=== PATIENT | male | born 1990 | race African-American/Black ===

== ENCOUNTER 2018-02-10 07:13 | Emergency (ER) | payer OTHER ==
[2018-02-10] MEDS: KETOROLAC 60 MG/2 ML VIAL (J1885) IM (07:38)
== END 2018-02-10 10:15 | disposition home or self-care (01) ==
LOC: M ED 07:13
DX: R07.9 Chest pain, unspecified (principal); F41.9 Anxiety disorder, unspecified
CPT/HCPCS: J1885

== ENCOUNTER 2018-05-02 10:36 | Emergency (ER) | payer OTHER ==
[2018-05-02 12:06] LABS: HEMATOCRIT 49.9 % (42.0-52.0); HEMOGLOBIN 16.7 g/dl (13.5-17.5); MEAN CORPUSCULAR HGB CONC 33.5 g/dl (32.0-36.5); MEAN CORPUSCULAR VOLUME 89.6 fl (80.0-96.0); PLATELET COUNT, AUTOMATED 295 10^3/uL (150-450); RED BLOOD COUNT 5.57 10^6/uL (4.30-6.10); WHITE BLOOD COUNT 6.5 10^3/uL (4.0-10.0)
[2018-05-02 12:52] LABS: ALBUMIN 4.1 GM/DL (3.2-5.2); ALBUMIN/GLOBULIN RATIO 1.14 (1.00-1.93); ALKALINE PHOSPHATASE 64 U/L (45-117); ALT/SGPT 20 U/L (12-78); AMPHETAMINES LEVEL URINE NEGATIVE (NEGATIVE); ANION GAP 5 MEQ/L (8-16); AST/SGOT 19 U/L (7-37); BARBITURATES URINE NEGATIVE (NEGATIVE); BENZODIAZEPINES URINE NEGATIVE (NEGATIVE); BILIRUBIN,DIRECT 0.2 MG/DL (0.0-0.2); BILIRUBIN,TOTAL 0.6 MG/DL (0.2-1.0); BLOOD UREA NITROGEN 15 MG/DL (7-18); CALCIUM LEVEL 9.1 MG/DL (8.5-10.1); CANNABINOIDS URINE POSITIVE (NEGATIVE); CARBON DIOXIDE LEVEL 30 MEQ/L (21-32); CHLORIDE LEVEL 105 MEQ/L (98-107); COCAINE METABOLITE URINE NEGATIVE (NEGATIVE); CREATININE FOR GFR 1.42 MG/DL (0.70-1.30); GLOMERULAR FILTRATION RATE > 60.0 (>60); GLUCOSE, FASTING 87 MG/DL (70-100); METHADONE URINE NEGATIVE (NEGATIVE); OPIATES URINE NEGATIVE (NEGATIVE); PHENCYCLIDINE URINE NEGATIVE (NEGATIVE); POTASSIUM SERUM 4.3 MEQ/L (3.5-5.1); SALICYLATE LEVEL 1.8 MG/DL (5.0-30.0); SODIUM LEVEL 140 MEQ/L (136-145); TOTAL PROTEIN 7.7 GM/DL (6.4-8.2)
[2018-05-02 12:53] LABS: ACETAMINOPHEN LEVEL < 2.0 UG/ML (10.0-30.0); ETHYL ALCOHOL (ETHANOL) < 0.003 % (0.000-0.010)
== END 2018-05-02 13:13 | disposition home or self-care (01) ==
LOC: M ED 10:36
DX: F43.0 Acute stress reaction (principal); F32.9 Major depressive disorder, single episode, unspecified; F41.9 Anxiety disorder, unspecified
CPT/HCPCS: 80320

== ENCOUNTER → 2019-02-15 | Outpatient (CLI) | payer OTHER ==
--- NOTE | 2019-02-16 08:17 | REP ---
Clinical: Trauma. Technique: Frontal view of the chest with 4 views of the left hemithorax. Findings: Frontal view of the chest demonstrates no acute cardiopulmonary process. Multiple views of the left hemithorax demonstrates no obvious acute rib fracture or pathology. Impression: Normal left rib series Electronically Signed by Gelacio Salazar MD 02/16/2019 08:09 A
== END ==
LOC: M RAD 10:52
PROVIDERS: ATTEND Physician Assistant
DX: R07.81 Pleurodynia (principal)

== ENCOUNTER → 2019-08-07 | Outpatient (REF) | payer OTHER ==
[2019-08-07 20:14] LABS: APPEARANCE, URINE CLEAR (CLEAR); BACTERIA, URINE AUTO NEGATIVE (NEGATIVE); BILIRUBIN, URINE AUTO NEGATIVE (NEGATIVE); BLOOD, URINE BLOOD NEGATIVE (NEGATIVE); COLOR, URINE YELLOW (YELLOW); GLUCOSE, URINE (UA) AUTO NEGATIVE (NEGATIVE); KETONE, URINE AUTO NEGATIVE (NEGATIVE); LEUKOCYTE ESTERASE, URINE AUTO NEGATIVE (NEGATIVE); NITRITE, URINE AUTO NEGATIVE (NEGATIVE); PROTEIN, URINE AUTO NEGATIVE (NEGATIVE); RBC, URINE AUTO 2 /HPF (0-3); SPECIFIC GRAVITY URINE AUTO 1.016 (1.002-1.035); SQUAMOUS EPITHELIAL CELL UR AU 0 /HPF (0-6); WBC, URINE AUTO 1 /HPF (0-3)
[2019-08-07 21:48] LABS: CHLAMYDIA DNA AMPLIFICATION NEGATIVE (NEGATIVE); GC DNA AMPLIFICATION NEGATIVE (NEGATIVE)
== END ==
LOC: M LAB REF 09:15
PROVIDERS: ATTEND Physician Assistant Medical
DX: Z11.3 Encounter for screening for infections with a predominantly sexual mode of transmission (principal); N39.3 Stress incontinence (female) (male)

== ENCOUNTER → 2019-08-15 | Outpatient (CLI) | payer OTHER ==
--- NOTE | 2019-08-15 20:57 | REP ---
LEFT FEMUR, AP AND LATERAL: There is no evidence of an acute fracture, dislocation or intrinsic bone disease. IMPRESSION: No fracture or dislocation. Electronically Signed by Florian Luu MD 08/16/2019 03:34 P
--- NOTE | 2019-08-15 20:58 | REP ---
LEFT FOOT, FOUR VIEWS: There is no evidence of an acute fracture, dislocation or intrinsic bone disease. IMPRESSION: No fracture or dislocation. Electronically Signed by Florian Luu MD 08/16/2019 03:34 P
== END ==
LOC: M WUC 19:28
PROVIDERS: ATTEND Physician Assistant
DX: M79.652 Pain in left thigh (principal); M79.672 Pain in left foot

== ENCOUNTER 2019-09-02 14:24 | Emergency (ER) | payer OTHER ==
[~2019-09-02] VITALS: Ht 177.8 cm; Wt 63.5 kg
[2019-09-02] MEDS ORDERED: NAPR220C14 PO (14:33)
[2019-09-02] MEDS ORDERED: NS 1,000 ML IV ONE (15:45)
[2019-09-02] MEDS ORDERED: MORPHINE 4 MG/ML 1ML VIAL/SYRINGE (J2270) IV ONE ×2 (15:45→18:00)
[2019-09-02] MEDS ORDERED: ONDANSETRON 4MG/2ML VIAL (J2405) IV ONE (15:45)
[2019-09-02 16:11] LABS: BASO % 0.3 % (0.0-1.0); EOS % 0.1 % (0.0-3.0); HEMATOCRIT 47.4 % (42.0-52.0); HEMOGLOBIN 15.8 g/dl (13.5-17.5); LYMPH # 1.5 10^3/uL (1.5-5.0); LYMPH % 13.4 % (24.0-44.0); MEAN CORPUSCULAR HEMOGLOBIN 30.5 pg (27.0-33.0); MEAN CORPUSCULAR HGB CONC 33.3 g/dl (32.0-36.5); MEAN CORPUSCULAR VOLUME 91.5 fl (80.0-96.0); MONO # 1.1 10^3/uL (0.0-0.8); MONO % 10.3 % (0.0-5.0); NEUTROPHILS # 8.2 10^3/uL (1.5-8.5); NEUTROPHILS % 75.5 % (36.0-66.0); PLATELET COUNT, AUTOMATED 253 10^3/uL (150-450); RED BLOOD COUNT 5.18 10^6/uL (4.30-6.10); WHITE BLOOD COUNT 10.8 10^3/uL (4.0-10.0)
[2019-09-02 16:31] LABS: BLOOD UREA NITROGEN 21 MG/DL (7-18); CALCIUM LEVEL 9.1 MG/DL (8.5-10.1); CARBON DIOXIDE LEVEL 27 MEQ/L (21-32); CHLORIDE LEVEL 104 MEQ/L (98-107); CREATININE FOR GFR 1.34 MG/DL (0.70-1.30); GLOMERULAR FILTRATION RATE > 60.0 (>60); GLUCOSE, FASTING 68 MG/DL (70-100); POTASSIUM SERUM 4.2 MEQ/L (3.5-5.1); SODIUM LEVEL 139 MEQ/L (136-145)
[2019-09-02] MEDS ORDERED: AMPICILLIN SOD/SULBACTAM SOD 3 GM in D5W MINI-BAG PLUS 100 ML IV ONE (17:15)
[2019-09-02 18:31] VITALS: BP 140/69
--- NOTE | 2019-09-03 11:10 | REP ---
REASON: Head injury. COMPARISON: None. The ventricles and sulci are within normal limits. There are no extra-axial fluid collections. There is no shift of the midline structures. The deep cerebral white matter is within normal limits. The cerebellopontine angles and posterior fossa are within normal limits. The cavernous, paracavernous structures and skull base are within normal limits. There is no skull fracture. Air-fluid levels are seen in the maxillary sinuses, suggestive of maxillary sinusitis. IMPRESSION: 1. No evidence of a brain abnormality. 2. Evidence to suggest bilateral maxillary sinusitis. Electronically Signed by Finesse Jauregui DO 09/03/2019 12:19 P
--- NOTE | 2019-09-03 11:14 | REP ---
REASON: Jaw pain after trauma. There is a fracture involving the mandible on the right near the mandibular angle and causing dentition disruption. Air-fluid levels are seen in the maxillary sinuses with mucosal thickening. There are no additional fractures. IMPRESSION: 1. Right-sided mandibular fracture with related findings, as described above. This is seen in conjunction with soft tissue swelling along with air density in the right licensed funeral director and embalmer space. Concomitant hematoma is likely. Scattered air densities are also seen in the right parapharyngeal space, also likely secondary to trauma, which is the history I have been given. 2. Maxillary sinus findings, as described above, suggestive of maxillary sinusitis. Correlate clinically. Electronically Signed by Finesse Jauregui DO 09/03/2019 12:19 P
== END 2019-09-02 18:34 | disposition short-term general hospital (02) ==
LOC: M ED 14:24
DX: S02.651A Fracture of angle of right mandible, initial encounter for closed fracture (principal); W01.198A Fall on same level from slipping, tripping and stumbling with subsequent striking against other object, initial encounter; Y92.019 Unspecified place in single-family (private) house as the place of occurrence of the external cause; J34.89 Other specified disorders of nose and nasal sinuses; F17.210 Nicotine dependence, cigarettes, uncomplicated
CPT/HCPCS: 70450; 70486; 80048; 85025; 86850; 86900; 86901; 96361; 96365; 96375; 99284; J2270; J2405

== ENCOUNTER → 2019-09-20 | Outpatient (CLI) | payer OTHER ==
[~2019-09-20] MED LIST: NAPR220C14 PO
--- NOTE | 2019-09-20 14:55 | REP ---
MAXILLOFACIAL CT STUDY WITHOUT CONTRAST: HISTORY: Right mandibular angle and left mandibular body fractures. COMPARISON STUDY: September 02, 2019. TECHNIQUE: Helical scanning is acquired. 3 mm axial images are reformatted. Coronal and sagittal MPR images are generated. CT FINDINGS: Digital senior hr manager views demonstrate screw plate fixation devices in place in the mandible bilaterally. There is an air-fluid level in the posterior aspect of the right maxillary sinus and some mucosal thickening is seen in the left maxillary sinus. Ethmoid, frontal, sphenoidal and mastoid sinuses are clear. Zygomatic arches are intact. Orbital margins are intact. The right mandibular angle fracture is seen to be fixed in anatomic alignment by a screw plate fixation device. The right mandibular molar has been removed. No bony destructive lesion is seen. No condylar neck fracture is noted on either side. The left mandibular body fracture is also noted to be held in anatomic alignment. A laterally positioned screw plate fixation device is seen in place. No condylar neck fracture is seen on the left. There are multiple carious bilateral mandibular and maxillary teeth. No significant hematoma or fluid collection is appreciated. IMPRESSION: Right mandibular angle and left mandibular body fractures held in anatomic alignment by a screw plate fixation device. No additional fracture seen. Electronically Signed by Jamaal Serrato MD 09/20/2019 03:27 P
== END ==
LOC: M RAD 13:34
PROVIDERS: ATTEND Otolaryngology
DX: S02.651 Fracture of angle of right mandible (principal); S02.602D Fracture of unspecified part of body of left mandible, subsequent encounter for fracture with routine healing; W01.198D Fall on same level from slipping, tripping and stumbling with subsequent striking against other object, subsequent encounter; Y92.019 Unspecified place in single-family (private) house as the place of occurrence of the external cause

== ENCOUNTER → 2020-02-08 | Outpatient (CLI) | payer MEDICAID | LOC: M OUTALCOH 11:00 | PROVIDERS: ATTEND Psychiatry & Neurology Addiction Medicine | DX: F10.10 Alcohol abuse, uncomplicated (principal) ==

== ENCOUNTER 2020-02-21 13:52 | Outpatient (RCR) | payer MEDICAID | END 2020-03-20 | LOC: M OUTALCOH 13:52 | PROVIDERS: ATTEND Psychiatry & Neurology Addiction Medicine | DX: Z03.89 Encounter for observation for other suspected diseases and conditions ruled out (principal) ==

== ENCOUNTER → 2021-09-30 | Outpatient (REF) | payer MEDICAID | LOC: M LAB REF 16:16 | PROVIDERS: ATTEND Physician Assistant | DX: R05.9 Cough, unspecified (principal); R50.9 Fever, unspecified; R53.83 Other fatigue ==

== ENCOUNTER → 2021-12-10 | Outpatient (REF) | payer MEDICAID ==
[2021-12-10 14:59] LABS: GC DNA AMPLIFICATION NEGATIVE (NEGATIVE)
== END ==
LOC: M LAB REF 12:30
PROVIDERS: ATTEND Physician Assistant
DX: Z20.2 Contact with and (suspected) exposure to infections with a predominantly sexual mode of transmission (principal)

== ENCOUNTER → 2022-08-10 | Outpatient (CLI) | payer MEDICAID, OTHER ==
[2022-08-10 18:57] LABS: BASO % 0.7 % (0.0-1.0); EOS # 0.1 10^3/uL (0.0-0.5); EOS % 1.9 % (0.0-3.0); HEMATOCRIT 48.5 % (42.0-52.0); HEMOGLOBIN 15.8 g/dl (13.5-17.5); LYMPH # 2.5 10^3/uL (1.5-5.0); LYMPH % 42.1 % (24.0-44.0); MEAN CORPUSCULAR HEMOGLOBIN 30.7 pg (27.0-33.0); MEAN CORPUSCULAR HGB CONC 32.6 g/dl (32.0-36.5); MEAN CORPUSCULAR VOLUME 94.2 fl (80.0-96.0); MONO # 0.7 10^3/uL (0.0-0.8); MONO % 11.1 % (2.0-8.0); NEUTROPHILS # 2.6 10^3/uL (1.5-8.5); PLATELET COUNT, AUTOMATED 323 10^3/uL (150-450); RED BLOOD COUNT 5.15 10^6/uL (4.30-6.10); WHITE BLOOD COUNT 5.9 10^3/uL (4.0-10.0)
[2022-08-10 19:18] LABS: ERYTHROCYTE SEDIMENTATION RATE 19 mm/hr (0-15)
== END ==
LOC: M PLALAB 14:47
PROVIDERS: ATTEND Physician Assistant
DX: M65.4 Radial styloid tenosynovitis [de Quervain] (principal)

== ENCOUNTER → 2022-08-11 | Outpatient (CLI) | payer OTHER | LOC: M RAD 15:54 | PROVIDERS: ATTEND Physician Assistant | DX: S56.31 Strain of extensor or abductor muscles, fascia and tendons of thumb at forearm level (principal) ==

== ENCOUNTER → 2022-09-10 | Outpatient (CLI) | payer OTHER ==
[~2022-09-10] MED LIST changes: +IBUP80TA
== END ==
LOC: M SOG 15:21
PROVIDERS: ATTEND Physician Assistant
DX: M79.641 Pain in right hand (principal)

== ENCOUNTER 2022-09-16 11:01 | Day surgery (SDC) | payer OTHER ==
[~2022-09-16] VITALS: Ht 177.8 cm; Wt 69.9 kg
[2022-09-16] MEDS ORDERED: LR 1,000 ML IV SCH (11:10)
[2022-09-16] MEDS ORDERED: MIDAZOLAM INJ 2MG/2ML VIAL As Ordered ONE (12:16)
[2022-09-16] MEDS ORDERED: fentaNYL 100 MCG/2 ML INJECTION As Ordered ONE (12:16)
[2022-09-16] MEDS ORDERED: ceFAZolin SOD 2 GM in IV 1 EA IV ONE (12:25)
[2022-09-16] MEDS ORDERED: propofoL 200 MG/20 ML VIAL As Ordered ONE (12:43)
[2022-09-16] MEDS ORDERED: BACITRACIN OINTMENT 30GM TUBE As Ordered ONE (12:43)
[2022-09-16] MEDS ORDERED: LIDOCAINE 2% 100MG/5ML SDV (FOR ANES.) As Ordered ONE (12:43)
[2022-09-16] MEDS ORDERED: ONDANSETRON 4MG 2ML VIAL As Ordered ONE (12:43)
[2022-09-16] MEDS ORDERED: HYDROmorphone HCL 2MG/ML 1ML VIAL As Ordered ONE (14:32)
[2022-09-16] MEDS ORDERED: KETOROLAC 60MG 2ML VIAL As Ordered ONE (14:56)
[2022-09-16] MEDS ORDERED: BUPIVACAINE HCL 0.25% 30ML VIAL As Ordered ONE (15:03)
[2022-09-16] MEDS ORDERED: PERC5TAB12 PO (15:31)
[2022-09-16 16:20] VITALS: BP 139/72
== END 2022-09-16 16:47 | disposition home or self-care (01) ==
LOC: M SDC 11:01
PROVIDERS: ATTEND Orthopaedic Surgery Hand Surgery
DX: S56.321A Laceration of extensor or abductor muscles, fascia and tendons of right thumb at forearm level, initial encounter (principal); F41.9 Anxiety disorder, unspecified; F17.200 Nicotine dependence, unspecified, uncomplicated
CPT/HCPCS: 26420; 87635; J0690; J1100; J1170; J1885; J2250; J2405; J3010

== ENCOUNTER → 2022-10-20 | Outpatient (REF) | payer OTHER ==
[~2022-10-20] MED LIST changes: +PERC5TAB12 PO
[2022-10-20 21:50] LABS: APPEARANCE, URINE CLEAR (CLEAR); BACTERIA, URINE AUTO NEGATIVE (NEGATIVE); BILIRUBIN, URINE AUTO NEGATIVE (NEGATIVE); BLOOD, URINE BLOOD NEGATIVE (NEGATIVE); COLOR, URINE YELLOW (YELLOW); GLUCOSE, URINE (UA) AUTO NEGATIVE (NEGATIVE); KETONE, URINE AUTO NEGATIVE (NEGATIVE); LEUKOCYTE ESTERASE, URINE AUTO NEGATIVE (NEGATIVE); NITRITE, URINE AUTO NEGATIVE (NEGATIVE); PROTEIN, URINE AUTO NEGATIVE (NEGATIVE); RBC, URINE AUTO 0 /HPF (0-3); SPECIFIC GRAVITY URINE AUTO 1.012 (1.002-1.035); SQUAMOUS EPITHELIAL CELL UR AU 0 /HPF (0-6); UROBILINOGEN, URINE AUTO 0.2 mg/dL (0.0-2.0); WBC, URINE AUTO 1 /HPF (0-3)
[2022-10-20 23:12] LABS: GC DNA AMPLIFICATION NEGATIVE (NEGATIVE)
== END ==
LOC: M LAB REF 21:04
PROVIDERS: ATTEND Physician Assistant Medical
DX: Z11.3 Encounter for screening for infections with a predominantly sexual mode of transmission (principal)

== ENCOUNTER → 2024-06-02 | Outpatient (REF) | payer OTHER ==
[2024-06-02 19:09] LABS: Trichomonas vaginalis (AMP) NOT DETECTED (NEGATIVE)
[2024-06-02 19:33] LABS: GC DNA AMPLIFICATION NEGATIVE (NEGATIVE)
== END ==
LOC: M LAB REF 16:30
PROVIDERS: ATTEND Physician Assistant Medical
DX: Z20.2 Contact with and (suspected) exposure to infections with a predominantly sexual mode of transmission (principal)

== ENCOUNTER → 2024-10-10 | Outpatient (REF) | payer OTHER ==
[2024-10-10 13:41] LABS: Trichomonas vaginalis (AMP) NOT DETECTED (NEGATIVE)
[2024-10-10 14:05] LABS: GC DNA AMPLIFICATION NEGATIVE (NEGATIVE)
== END ==
LOC: M LAB REF 12:10
PROVIDERS: ATTEND Physician Assistant Medical
DX: Z20.2 Contact with and (suspected) exposure to infections with a predominantly sexual mode of transmission (principal)